=== PATIENT | female | born 1955 | race Caucasian/White ===

== ENCOUNTER 2019-03-24 05:53 | Inpatient (IN) | payer MEDICAID, OTHER ==
[~2019-03-24] VITALS: Ht 162.6 cm; Wt 42.0 kg
--- NOTE | 2019-03-24 05:58 | NUR ---
assessment made. ERP at bedside. patient with a GCS 5 at this time. eyes deviated to right. decorticate posturing noted.
[2019-03-24] MEDS ORDERED: SODIUM CHLORIDE FLUSH 10ML SYR IVF ONE (06:00)
--- NOTE | 2019-03-24 06:00 | NUR ---
patient to CT scan.
[2019-03-24 06:19] LABS: BASOPHILS % (AUTO) 0 % (0-1); EOSINOPHILS # (AUTO) 0.01 x10^3/uL (0-0.4); EOSINOPHILS % (AUTO) 0 % (1-7); LYMPHOCYTES # (AUTO) 1.04 x10^3/uL (1-3.4); LYMPHOCYTES % (AUTO) 8 % (22-44); MD NO; MEAN CORPUSCULAR HEMOGLOBIN 27.5 pg (27.0-34.8); MEAN CORPUSCULAR HGB CONC 33.1 g/dL (32.4-35.8); MEAN CORPUSCULAR VOLUME 83.1 fL (80-100); MEAN PLATELET VOLUME 6.7 fL (7.4-10.4); MONOCYTES # (AUTO) 0.05 x10^3/uL (0.2-0.8); MONOCYTES % (AUTO) 0 % (2-9); NEUTROPHILS # (AUTO) 11.81 x10^3/uL (1.8-6.8); NEUTROPHILS % (AUTO) 92 % (42-75); PLATELET COUNT 511 x10^3/uL (130-400); RED BLOOD COUNT 4.06 x10^6/uL (3.82-5.3); RED CELL DISTRIBUTION WIDTH 19.4 % (9.6-15.2)
[2019-03-24 06:26] LABS: INTERNATIONAL NORMALIZED RATIO 1.15 (0.93-1.1)
[2019-03-24] MEDS ORDERED: SUCCINYLCHOLINE 20 MG/ML, 10ML IVPush ONE (06:30)
[2019-03-24] MEDS ORDERED: ETOMIDATE 20 MG/10 ML IVPush ONE (06:30)
[2019-03-24] MEDS ORDERED: PROPOFOL 100 ML IV PRN ×2 (06:30→10:41)
[2019-03-24 06:31] LABS: ALANINE AMINOTRANSFERASE 49 U/L (12-78); ALBUMIN 2.2 g/dL (3.4-5.0); CALCIUM 6.3 mg/dL (8.5-10.1); CHLORIDE 117 mmol/L (98-107)
[2019-03-24 06:42] LABS: ALKALINE PHOSPHATASE 208 U/L (45-117); BILIRUBIN,TOTAL 0.8 mg/dL (0.2-1.0); TOTAL PROTEIN 5.5 g/dL (6.4-8.2)
--- NOTE | 2019-03-24 06:45 | NUR ---
Dr. Hunter spoke to silas. patient still full code. intubated with 7.5 , 22 at the [facility].
[2019-03-24] MEDS ORDERED: SODIUM CHLORIDE 0.9% 1,000 ML IV ONE (06:47)
[2019-03-24 06:54] LABS: ANION GAP 10 mmol/L (5-15)
[2019-03-24 06:57] LABS: SALICYLATE LEVEL < 1.7 mg/dL (2.8-20.0)
[2019-03-24] MEDS ORDERED: POTASSIUM CHLORIDE 40 MEQ in SODIUM CHLORIDE 0.9% 500 ML IV ONE ×3 (07:00→18:00)
--- NOTE | 2019-03-24 07:10 | NUR ---
report to MISTY Montoya.
[2019-03-24] MEDS ORDERED: FENTANYL PF 100 MCG/2ML ONE (07:14)
[2019-03-24] MEDS: FENTANYL PF 100 MCG/2ML IVPush PRN ×2 (07:18→09:39)
--- NOTE | 2019-03-24 07:25 | NUR ---
TASK RN: MED SLIP SENT TO PHARMACY PER REQUEST OF PRIMARY RN.
--- NOTE | 2019-03-24 07:32 | NUR ---
OG and webber inserted per order. Pt appears more comfortable p medications. RT attempting to collect ABG per order.
--- NOTE | 2019-03-24 07:46 | NUR ---
Pt to CT via [facility].
[2019-03-24] MEDS ORDERED: D5%-0.45NACL+KCL 40MEQ 1,000 ML IV SCH (08:00)
[2019-03-24] MEDS ORDERED: OMNIPAQUE 350 MG/ML, 100ML BOTTLE ONE (08:02)
--- NOTE | 2019-03-24 08:11 | NUR ---
Pt back from CT, appears restless, biting ETT. Propofol increased.
--- NOTE | 2019-03-24 08:23 | NUR ---
Pt appears more calm, NADN. Discussed IV infusions with Dr. Hunter. All ordered IV infusions to be continued at this time.
[2019-03-24 08:40] LABS: BARBITURATE SCREEN, URINE Negative (Negative); BENZODIAZEPINE SCREEN, URINE Negative (Negative); CANNABINOID SCREEN, URINE Negative (Negative); COCAINE SCREEN, URINE Negative (Negative); METHADONE SCREEN, URINE Negative (Negative)
--- NOTE | 2019-03-24 08:44 | NUR ---
Pt restless, propofol increased, pt positioned for comfort.
[2019-03-24 08:46] LABS: MICROSCOPIC INDICATED
[2019-03-24 08:50] LABS: AMPHETAMINE SCREEN, URINE Negative (Negative); OPIATE SCREEN, URINE Positive (Negative)
[2019-03-24 08:51] LABS: CULTURE INDICATED? NO
[2019-03-24] MEDS ORDERED: SUCCINYLCHOLINE 20 MG/ML, 10ML ONE (09:00)
[2019-03-24] MEDS ORDERED: PROPOFOL 10 MG/ML, 100ML IV ONE (09:00)
[2019-03-24] MEDS ORDERED: ETOMIDATE 20 MG/10 ML ONE (09:00)
[2019-03-24] MEDS ORDERED: FENTANYL PF 100 MCG/2ML IVPush PRN ×2 (09:30→11:00)
--- NOTE | 2019-03-24 09:35 | NUR ---
reported bg to dr saldana, gave 50cc of iv dextose per er md. medicated per protocol.
[2019-03-24] MEDS ORDERED: POTASSIUM CHLORIDE 40 MEQ in DEXTROSE 10% 1,000 ML IV SCH ×3 (10:00→18:30)
[2019-03-24] MEDS ORDERED: DEXTROSE 50%, 50ML VIAL IVPush ONE (10:00)
[2019-03-24 10:09] LABS: CLOSTRIDIUM DIFFICILE ANTIGEN NEGATIVE; CLOSTRIDIUM DIFFICILE TOXIN NEGATIVE (Negative)
[2019-03-24] MEDS ORDERED: NOREPINEPHRINE 4 MG in SODIUM CHLORIDE 0.9% 246 ML IV PRN (10:41)
[2019-03-24] MEDS ORDERED: LACTATED RINGERS 1,000 ML IV SCH (11:00)
[2019-03-24] MEDS: INSULIN LISPRO 100 UNITS/ML, PEN SQ-INSULIN SCH ×3 (11:00→20:14)
[2019-03-24] MEDS: ALBUTEROL/IPRATROPIUM 2.5MG/0.5MG, 3 ML INLINE SCH ×3 (11:00→19:00)
[2019-03-24] MEDS ORDERED: LIDOCAINE-MPF 1%, 2ML ENDO PRN (11:00)
[2019-03-24] MEDS ORDERED: GLUCAGON 1 MG IM PRN ×2 (11:00→12:30)
[2019-03-24] MEDS ORDERED: DEXTROSE 4 GM TAB.CHEW PO PRN ×2 (11:00→12:30)
[2019-03-24] MEDS ORDERED: PHARMACY MAY ADJ FOR RENAL FX MC SCH (11:00)
[2019-03-24] MEDS ORDERED: VANCOMYCIN 50 MG/ML ORAL SUSP PO SCH (11:00)
[2019-03-24] MEDS: PIPERACILLIN/TAZO/PMX 2.25GM 50 ML IV SCH ×2 (11:59→20:13)
[2019-03-24] MEDS ORDERED: METRONIDAZOLE PMX 500MG/100ML 100 ML IV SCH (12:00)
[2019-03-24] MEDS ORDERED: DEXTROSE 50%, 50ML SYRINGE IVPush PRN (12:30)
[2019-03-24] MEDS: DEXTROSE 50%, 50ML SYRINGE IVPush PRN ×4 (12:50→19:28)
[2019-03-24 13:32] LABS: INTERNATIONAL NORMALIZED RATIO 1.25 (0.93-1.1)
[2019-03-24 13:34] LABS: ANION GAP 13 mmol/L (5-15); CALCIUM 6.3 mg/dL (8.5-10.1); CHLORIDE 120 mmol/L (98-107); CREATININE 0.95 mg/dL (0.55-1.02); TRIGLYCERIDES 51 mg/dL (50-200)
[2019-03-24] MEDS: KSCALE TO 4.5 IV SCH ×2 (14:00→22:30)
[2019-03-24] MEDS ORDERED: MAGNESIUM SULFATE 4 GM in SODIUM CHLORIDE 0.9% 100 ML IV ONE (14:00)
[2019-03-24 14:11] LABS: TROPONIN I 0.269 ng/mL (0.000-0.045)
[2019-03-24] MEDS: HEPARIN 5,000 UNITS/ML, 1ML SQ SCH ×2 (15:03→20:14)
[2019-03-24 16:05] LABS: MICROSCOPIC INDICATED
[2019-03-24 16:47] LABS: CULTURE INDICATED? NO
[2019-03-24 16:52] LABS: ANION GAP 11 mmol/L (5-15); CHLORIDE 121 mmol/L (98-107); CREATININE 0.93 mg/dL (0.55-1.02)
[2019-03-24 16:53] LABS: MEAN CORPUSCULAR HEMOGLOBIN 26.9 pg (27.0-34.8); MEAN CORPUSCULAR HGB CONC 32.5 g/dL (32.4-35.8); MEAN CORPUSCULAR VOLUME 82.6 fL (80-100); MEAN PLATELET VOLUME 6.7 fL (7.4-10.4); PLATELET COUNT 491 x10^3/uL (130-400); RED BLOOD COUNT 3.42 x10^6/uL (3.82-5.3); RED CELL DISTRIBUTION WIDTH 18.9 % (9.6-15.2)
[2019-03-24 16:55] LABS: TROPONIN I 0.246 ng/mL (0.000-0.045)
[2019-03-24] MEDS ORDERED: POTASSIUM CHLORIDE 40 MEQ in SODIUM CHLORIDE 0.9% 100 ML IV ONE ×2 (18:30→23:30)
[2019-03-24 19:03] LABS: CALCIUM 6.1 mg/dL (8.5-10.1); CHLORIDE 124 mmol/L (98-107); CREATININE 0.83 mg/dL (0.55-1.02)
[2019-03-24 19:23] LABS: ANION GAP 12 mmol/L (5-15)
[2019-03-24] MEDS: POTASSIUM CHLORIDE 40 MEQ in DEXTROSE 10% 1,000 ML IV SCH (19:30)
[2019-03-24] MEDS: SODIUM CHLORIDE FLUSH 10ML SYR IVF SCH (20:14)
[2019-03-24] MEDS ORDERED: SODIUM CHLORIDE 0.9% 500 ML IV ONE (21:00)
[2019-03-24] MEDS ORDERED: SODIUM CHLORIDE FLUSH 10ML SYR IVF SCH (21:00)
[2019-03-24 22:03] VITALS: BP 97/55
[2019-03-24 22:53] LABS: MEAN CORPUSCULAR HEMOGLOBIN 27.4 pg (27.0-34.8); MEAN CORPUSCULAR HGB CONC 32.8 g/dL (32.4-35.8); MEAN CORPUSCULAR VOLUME 83.6 fL (80-100); MEAN PLATELET VOLUME 6.7 fL (7.4-10.4); PLATELET COUNT 423 x10^3/uL (130-400); RED CELL DISTRIBUTION WIDTH 18.5 % (9.6-15.2)
[2019-03-24 22:57] LABS: ANION GAP 11 mmol/L (5-15); CHLORIDE 126 mmol/L (98-107); CREATININE 0.78 mg/dL (0.55-1.02)
[2019-03-24 23:05] LABS: CALCIUM 5.5 mg/dL (8.5-10.1)
[2019-03-24] MEDS ORDERED: CALCIUM GLUCONATE 9.2 MEQ in SODIUM CHLORIDE 0.9% 100 ML IV ONE (23:30)
[2019-03-25] MEDS: PIPERACILLIN/TAZO/PMX 2.25GM 50 ML IV SCH (04:20)
[2019-03-25] MEDS: HEPARIN 5,000 UNITS/ML, 1ML SQ SCH ×3 (04:20→20:25)
[2019-03-25 04:27] VITALS: BP 102/58
[2019-03-25] MEDS: KSCALE TO 4.5 IV SCH (04:30)
[2019-03-25 04:44] LABS: BASOPHILS # (AUTO) 0.02 x10^3/uL (0-0.1); BASOPHILS % (AUTO) 0 % (0-1); EOSINOPHILS # (AUTO) 0.01 x10^3/uL (0-0.4); EOSINOPHILS % (AUTO) 0 % (1-7); LYMPHOCYTES # (AUTO) 1.95 x10^3/uL (1-3.4); LYMPHOCYTES % (AUTO) 14 % (22-44); MD NO; MEAN CORPUSCULAR HEMOGLOBIN 27.7 pg (27.0-34.8); MEAN CORPUSCULAR HGB CONC 32.9 g/dL (32.4-35.8); MEAN CORPUSCULAR VOLUME 84.1 fL (80-100); MEAN PLATELET VOLUME 6.9 fL (7.4-10.4); MONOCYTES # (AUTO) 0.53 x10^3/uL (0.2-0.8); MONOCYTES % (AUTO) 4 % (2-9); NEUTROPHILS # (AUTO) 11.28 x10^3/uL (1.8-6.8); NEUTROPHILS % (AUTO) 82 % (42-75); PLATELET COUNT 470 x10^3/uL (130-400); RED BLOOD COUNT 3.22 x10^6/uL (3.82-5.3); RED CELL DISTRIBUTION WIDTH 19.3 % (9.6-15.2)
[2019-03-25 04:58] LABS: ALANINE AMINOTRANSFERASE 46 U/L (12-78); ALBUMIN 1.6 g/dL (3.4-5.0); ANION GAP 12 mmol/L (5-15); CHLORIDE 125 mmol/L (98-107)
[2019-03-25 05:00] LABS: ALKALINE PHOSPHATASE 166 U/L (45-117); BILIRUBIN,TOTAL 0.9 mg/dL (0.2-1.0); TOTAL PROTEIN 4.3 g/dL (6.4-8.2)
[2019-03-25] MEDS ORDERED: POTASSIUM CHLORIDE 30 MEQ in SODIUM CHLORIDE 0.9% 100 ML IV ONE (05:30)
[2019-03-25] MEDS: ALBUTEROL/IPRATROPIUM 2.5MG/0.5MG, 3 ML INLINE SCH ×5 (07:00→22:25)
[2019-03-25] MEDS: SODIUM CHLORIDE FLUSH 10ML SYR IVF SCH ×2 (09:01→20:25)
[2019-03-25] MEDS: PANTOPRAZOLE 40 MG IV IV SCH (09:01)
[2019-03-25] MEDS: POTASSIUM CHLORIDE 20 MEQ PACKET PO SCH ×2 (09:01→20:25)
[2019-03-25] MEDS: POTASSIUM CHLORIDE 40 MEQ in DEXTROSE 10% 1,000 ML IV SCH ×2 (09:38→20:49)
[2019-03-25] MEDS ORDERED: CALCIUM CHLORIDE 13.6 MEQ in SODIUM CHLORIDE 0.9% 100 ML IV ONE (11:00)
[2019-03-25] MEDS ORDERED: CALCIUM GLUCONATE 13.8 MEQ in SODIUM CHLORIDE 0.9% 100 ML IV ONE (11:00)
[2019-03-25] MEDS ORDERED: SODIUM PHOSPHATE 20 MMOL in SODIUM CHLORIDE 0.9% 500 ML IV ONE (12:00)
[2019-03-25] MEDS: INSULIN LISPRO 100 UNITS/ML, PEN SQ-INSULIN SCH ×2 (13:49→18:39)
[2019-03-25] MEDS: ERGOCALCIFEROL 50,000 UNIT CAPSULE PO SCH (13:53)
[2019-03-25] MEDS ORDERED: DEXMEDETOMIDINE 1,000 MCG in SODIUM CHLORIDE 0.9% 240 ML IV PRN (14:30)
[2019-03-25] MEDS ORDERED: NOREPINEPHRINE 4 MG in SODIUM CHLORIDE 0.9% 246 ML IV PRN (14:30)
[2019-03-26] MEDS: INSULIN LISPRO 100 UNITS/ML, PEN SQ-INSULIN SCH ×4 (01:46→20:15)
[2019-03-26] MEDS: ALBUTEROL/IPRATROPIUM 2.5MG/0.5MG, 3 ML INLINE SCH ×6 (02:30→22:16)
[2019-03-26 04:00] VITALS: BP 114/59
[2019-03-26 04:04] LABS: BASOPHILS % (AUTO) 0 % (0-1); EOSINOPHILS % (AUTO) 0 % (1-7); LYMPHOCYTES # (AUTO) 1.55 x10^3/uL (1-3.4); LYMPHOCYTES % (AUTO) 13 % (22-44); MD NO; MEAN CORPUSCULAR HEMOGLOBIN 27.7 pg (27.0-34.8); MEAN CORPUSCULAR HGB CONC 32.4 g/dL (32.4-35.8); MEAN CORPUSCULAR VOLUME 85.5 fL (80-100); MEAN PLATELET VOLUME 6.8 fL (7.4-10.4); MONOCYTES # (AUTO) 0.56 x10^3/uL (0.2-0.8); MONOCYTES % (AUTO) 5 % (2-9); NEUTROPHILS # (AUTO) 10.06 x10^3/uL (1.8-6.8); NEUTROPHILS % (AUTO) 83 % (42-75); PLATELET COUNT 407 x10^3/uL (130-400); RED BLOOD COUNT 2.73 x10^6/uL (3.82-5.3); RED CELL DISTRIBUTION WIDTH 21.5 % (9.6-15.2)
[2019-03-26 04:05] LABS: ANION GAP 6 mmol/L (5-15); CHLORIDE 119 mmol/L (98-107); CREATININE 1.14 mg/dL (0.55-1.02)
[2019-03-26 04:31] LABS: CALCIUM 5.8 mg/dL (8.5-10.1)
[2019-03-26] MEDS: HEPARIN 5,000 UNITS/ML, 1ML SQ SCH ×3 (04:51→19:58)
[2019-03-26 05:05] LABS: ANION GAP 10 mmol/L (5-15); CALCIUM 6.4 mg/dL (8.5-10.1); CHLORIDE 126 mmol/L (98-107); CREATININE 0.87 mg/dL (0.55-1.02)
[2019-03-26] MEDS ORDERED: MAGNESIUM SULFATE PMX 2GM/50ML 50 ML IV ONE (07:00)
[2019-03-26] MEDS ORDERED: CALCIUM GLUCONATE IV ONE (07:00)
[2019-03-26] MEDS ORDERED: POTASSIUM PHOSPHATE 44 MEQ in SODIUM CHLORIDE 0.9% 500 ML IV ONE (07:00)
[2019-03-26] MEDS ORDERED: SODIUM CHLORIDE 0.9% IV ONE (07:00)
[2019-03-26] MEDS: POTASSIUM CHLORIDE 40 MEQ in DEXTROSE 10% 1,000 ML IV SCH ×2 (08:01→20:32)
[2019-03-26] MEDS: PANTOPRAZOLE 40 MG IV IV SCH (08:36)
[2019-03-26] MEDS: SODIUM CHLORIDE FLUSH 10ML SYR IVF SCH ×2 (10:31→20:11)
[2019-03-26] MEDS: CHOLESTYRAMINE LIGHT 4GM PACKET PO SCH ×2 (12:12→20:11)
[2019-03-26] MEDS ORDERED: CATHFLO-ALTEPLASE 2 MG/2 ML CATHFLUSH ONE (23:00)
[2019-03-27] MEDS: INSULIN LISPRO 100 UNITS/ML, PEN SQ-INSULIN SCH ×4 (01:29→20:00)
[2019-03-27] MEDS ORDERED: CATHFLO-ALTEPLASE 2 MG/2 ML CATHFLUSH ONE (01:30)
[2019-03-27] MEDS: ALBUTEROL/IPRATROPIUM 2.5MG/0.5MG, 3 ML INLINE SCH (02:30)
[2019-03-27 04:42] LABS: BASOPHILS # (AUTO) 0.04 x10^3/uL (0-0.1); BASOPHILS % (AUTO) 0 % (0-1); EOSINOPHILS # (AUTO) 0.03 x10^3/uL (0-0.4); EOSINOPHILS % (AUTO) 0 % (1-7); LYMPHOCYTES # (AUTO) 1.59 x10^3/uL (1-3.4); LYMPHOCYTES % (AUTO) 13 % (22-44); MD NO; MEAN CORPUSCULAR HGB CONC 32.8 g/dL (32.4-35.8); MEAN CORPUSCULAR VOLUME 85.2 fL (80-100); MONOCYTES # (AUTO) 0.33 x10^3/uL (0.2-0.8); MONOCYTES % (AUTO) 3 % (2-9); NEUTROPHILS # (AUTO) 10.27 x10^3/uL (1.8-6.8); NEUTROPHILS % (AUTO) 84 % (42-75); PLATELET COUNT 390 x10^3/uL (130-400); RED BLOOD COUNT 2.85 x10^6/uL (3.82-5.3); RED CELL DISTRIBUTION WIDTH 21.5 % (9.6-15.2)
[2019-03-27] MEDS: HEPARIN 5,000 UNITS/ML, 1ML SQ SCH ×3 (04:50→21:48)
[2019-03-27 04:58] LABS: ANION GAP 6 mmol/L (5-15); CALCIUM 6.2 mg/dL (8.5-10.1); CHLORIDE 120 mmol/L (98-107)
[2019-03-27 04:59] LABS: CREATININE 0.78 mg/dL (0.55-1.02); TRIGLYCERIDES 66 mg/dL (50-200)
[2019-03-27 05:44] VITALS: BP 108/65
[2019-03-27] MEDS: POTASSIUM CHLORIDE 40 MEQ in DEXTROSE 10% 1,000 ML IV SCH (06:07)
[2019-03-27] MEDS: CHOLESTYRAMINE LIGHT 4GM PACKET PO SCH ×2 (09:10→21:00)
[2019-03-27] MEDS: PANTOPRAZOLE 40 MG IV IV SCH (09:10)
[2019-03-27] MEDS: SODIUM CHLORIDE FLUSH 10ML SYR IVF SCH ×2 (09:13→21:49)
[2019-03-27] MEDS ORDERED: ALBUTEROL/IPRATROPIUM 2.5MG/0.5MG, 3 ML NPPB PRN (14:30)
[2019-03-28] MEDS: D5%-0.9% NACL 1,000 ML IV SCH ×2 (01:18→13:32)
[2019-03-28] MEDS: INSULIN LISPRO 100 UNITS/ML, PEN SQ-INSULIN SCH ×4 (02:00→20:00)
[2019-03-28 03:59] LABS: O2 FLOW ROOM AIR L/min
[2019-03-28 04:00] VITALS: BP 128/63
[2019-03-28 05:09] LABS: MEAN CORPUSCULAR HEMOGLOBIN 27.9 pg (27.0-34.8); MEAN CORPUSCULAR HGB CONC 32.6 g/dL (32.4-35.8); MEAN CORPUSCULAR VOLUME 85.5 fL (80-100); PLATELET COUNT 475 x10^3/uL (130-400); RED BLOOD COUNT 3.38 x10^6/uL (3.82-5.3); RED CELL DISTRIBUTION WIDTH 21.8 % (9.6-15.2)
[2019-03-28 05:15] LABS: ANION GAP 6 mmol/L (5-15); CALCIUM 6.4 mg/dL (8.5-10.1); CHLORIDE 121 mmol/L (98-107)
[2019-03-28] MEDS: HEPARIN 5,000 UNITS/ML, 1ML SQ SCH (05:20)
[2019-03-28 06:43] LABS: BASOPHILS # (AUTO) 0.05 x10^3/uL (0-0.1); BASOPHILS % (AUTO) 0 % (0-1); EOSINOPHILS # (AUTO) 0.06 x10^3/uL (0-0.4); EOSINOPHILS % (AUTO) 1 % (1-7); LYMPHOCYTES # (AUTO) 1.82 x10^3/uL (1-3.4); LYMPHOCYTES % (AUTO) 14 % (22-44); MD SCAN; MONOCYTES # (AUTO) 0.41 x10^3/uL (0.2-0.8); MONOCYTES % (AUTO) 3 % (2-9); NEUTROPHILS # (AUTO) 10.62 x10^3/uL (1.8-6.8); NEUTROPHILS % (AUTO) 82 % (42-75)
[2019-03-28] MEDS: CHOLESTYRAMINE LIGHT 4GM PACKET PO SCH ×2 (09:00→20:16)
[2019-03-28] MEDS: SODIUM CHLORIDE FLUSH 10ML SYR IVF SCH ×2 (10:16→20:16)
[2019-03-28] MEDS: PANTOPRAZOLE 40 MG IV IV SCH (10:16)
[2019-03-28 13:09] VITALS: BP 98/64
[2019-03-28] MEDS: ENOXAPARIN 40 MG/0.4 ML SQ SCH (13:40)
[2019-03-28 19:59] VITALS: BP 108/64
[2019-03-28] MEDS: DRONABINOL 5 MG CAPSULE PO SCH (20:16)
[2019-03-29 00:30] VITALS: BP 115/71
[2019-03-29] MEDS: INSULIN LISPRO 100 UNITS/ML, PEN SQ-INSULIN SCH ×4 (02:00→20:41)
[2019-03-29] MEDS: D5%-0.9% NACL 1,000 ML IV SCH ×2 (02:37→15:19)
[2019-03-29 04:15] VITALS: BP 112/70
[2019-03-29 06:20] LABS: BASOPHILS # (AUTO) 0.01 x10^3/uL (0-0.1); BASOPHILS % (AUTO) 0 % (0-1); EOSINOPHILS # (AUTO) 0.03 x10^3/uL (0-0.4); EOSINOPHILS % (AUTO) 0 % (1-7); LYMPHOCYTES # (AUTO) 1.62 x10^3/uL (1-3.4); LYMPHOCYTES % (AUTO) 15 % (22-44); MD NO; MEAN CORPUSCULAR HEMOGLOBIN 28.2 pg (27.0-34.8); MEAN CORPUSCULAR HGB CONC 32.5 g/dL (32.4-35.8); MEAN CORPUSCULAR VOLUME 86.9 fL (80-100); MONOCYTES # (AUTO) 0.37 x10^3/uL (0.2-0.8); MONOCYTES % (AUTO) 3 % (2-9); NEUTROPHILS # (AUTO) 8.93 x10^3/uL (1.8-6.8); NEUTROPHILS % (AUTO) 82 % (42-75); PLATELET COUNT 451 x10^3/uL (130-400); RED BLOOD COUNT 3.58 x10^6/uL (3.82-5.3); RED CELL DISTRIBUTION WIDTH 21.7 % (9.6-15.2)
[2019-03-29 06:33] LABS: ALANINE AMINOTRANSFERASE 37 U/L (12-78); ALBUMIN 1.6 g/dL (3.4-5.0); ANION GAP 10 mmol/L (5-15); CALCIUM 6.5 mg/dL (8.5-10.1); CHLORIDE 122 mmol/L (98-107); CREATININE 0.59 mg/dL (0.55-1.02)
[2019-03-29 06:35] LABS: ALKALINE PHOSPHATASE 173 U/L (45-117); BILIRUBIN,TOTAL 0.8 mg/dL (0.2-1.0); TOTAL PROTEIN 4.8 g/dL (6.4-8.2)
[2019-03-29 07:15] VITALS: BP 128/88
[2019-03-29] MEDS: DRONABINOL 5 MG CAPSULE PO SCH ×2 (07:25→20:42)
[2019-03-29] MEDS: PANTOPRAZOLE 40 MG IV IV SCH (07:25)
[2019-03-29] MEDS: CHOLESTYRAMINE LIGHT 4GM PACKET PO SCH ×2 (07:25→20:42)
[2019-03-29] MEDS: SODIUM CHLORIDE FLUSH 10ML SYR IVF SCH ×2 (07:25→20:44)
[2019-03-29] MEDS ORDERED: MAGNESIUM SULFATE PMX 2GM/50ML 50 ML IV ONE (12:30)
[2019-03-29 12:41] VITALS: BP 106/70
[2019-03-29] MEDS: ENOXAPARIN 40 MG/0.4 ML SQ SCH (13:31)
[2019-03-29] MEDS: POTASSIUM CHLORIDE 20 MEQ TAB.ER.PRT PO SCH (16:57)
[2019-03-29 19:24] VITALS: BP 110/70
[2019-03-30 01:00] VITALS: BP 127/72
[2019-03-30] MEDS: INSULIN LISPRO 100 UNITS/ML, PEN SQ-INSULIN SCH ×3 (02:11→13:40)
[2019-03-30] MEDS: D5%-0.9% NACL 1,000 ML IV SCH (04:27)
[2019-03-30 04:52] LABS: BASOPHILS # (AUTO) 0.03 x10^3/uL (0-0.1); BASOPHILS % (AUTO) 0 % (0-1); EOSINOPHILS # (AUTO) 0.05 x10^3/uL (0-0.4); EOSINOPHILS % (AUTO) 1 % (1-7); LYMPHOCYTES # (AUTO) 1.92 x10^3/uL (1-3.4); LYMPHOCYTES % (AUTO) 17 % (22-44); MD NO; MEAN CORPUSCULAR HEMOGLOBIN 27.9 pg (27.0-34.8); MEAN CORPUSCULAR HGB CONC 32.2 g/dL (32.4-35.8); MEAN CORPUSCULAR VOLUME 86.5 fL (80-100); MONOCYTES # (AUTO) 0.51 x10^3/uL (0.2-0.8); MONOCYTES % (AUTO) 5 % (2-9); NEUTROPHILS # (AUTO) 8.54 x10^3/uL (1.8-6.8); NEUTROPHILS % (AUTO) 77 % (42-75); PLATELET COUNT 493 x10^3/uL (130-400); RED BLOOD COUNT 3.49 x10^6/uL (3.82-5.3)
[2019-03-30 05:00] LABS: ANION GAP 10 mmol/L (5-15); CALCIUM 6.2 mg/dL (8.5-10.1); CHLORIDE 120 mmol/L (98-107)
[2019-03-30 05:01] LABS: CREATININE 0.62 mg/dL (0.55-1.02)
[2019-03-30] MEDS ORDERED: POTASSIUM CHLORIDE 40 MEQ in SODIUM CHLORIDE 0.9% 500 ML IV ONE (05:30)
[2019-03-30] MEDS ORDERED: POTASSIUM CHLORIDE 20 MEQ TAB.ER.PRT PO ONE (05:30)
[2019-03-30] MEDS ORDERED: POTASSIUM CHLORIDE 10% 40 MEQ/30 ML UDC PO ONE (05:30)
[2019-03-30 08:26] VITALS: BP 126/76
[2019-03-30] MEDS: CHOLESTYRAMINE LIGHT 4GM PACKET PO SCH ×2 (10:45→21:00)
[2019-03-30] MEDS: DRONABINOL 5 MG CAPSULE PO SCH ×2 (10:45→21:00)
[2019-03-30] MEDS: MAGNESIUM OXIDE 400 MG TABLET PO SCH (10:45)
[2019-03-30] MEDS: SODIUM CHLORIDE FLUSH 10ML SYR IVF SCH ×2 (10:45→23:18)
[2019-03-30] MEDS: POTASSIUM CHLORIDE 20 MEQ TAB.ER.PRT PO SCH ×3 (10:45→17:19)
[2019-03-30] MEDS: ENOXAPARIN 40 MG/0.4 ML SQ SCH (13:47)
[2019-03-30] MEDS ORDERED: D5%-0.45NACL+KCL 40MEQ 1,000 ML IV SCH (14:30)
[2019-03-30] MEDS ORDERED: PVN PER PHARMACY MC PRN (14:30)
[2019-03-30 14:40] VITALS: BP 118/81
[2019-03-30 15:44] LABS: ANION GAP 6 mmol/L (5-15); CALCIUM 6.8 mg/dL (8.5-10.1); CHLORIDE 126 mmol/L (98-107); CREATININE 0.64 mg/dL (0.55-1.02)
[2019-03-30] MEDS ORDERED: D5%-0.45% NACL 1,000 ML IV SCH (16:30)
[2019-03-30] MEDS ORDERED: DEXTROSE 50%, 50ML SYRINGE IVPush PRN (17:00)
[2019-03-30] MEDS ORDERED: FAT EMUL IV SCH ×2 (17:00)
[2019-03-30] MEDS ORDERED: CALCIUM GLUCONATE 9.2 MEQ in SODIUM CHLORIDE 0.9% 100 ML IV ONE (17:00)
[2019-03-30] MEDS ORDERED: [UNRECOGNIZED DRUG - OTHER] IV SCH ×2 (17:00)
[2019-03-30] MEDS ORDERED: DEXTROSE 70% IV SCH ×2 (17:00)
[2019-03-30] MEDS ORDERED: SMOF TPN IV SCH ×2 (17:00)
[2019-03-30] MEDS ORDERED: AMINO ACID 10% IV SCH ×2 (17:00)
[2019-03-30 19:59] VITALS: BP 134/74
[2019-03-30] MEDS: INSULIN REGULAR MEDIUM DOSE Q6H X 48HRS SQ-INSULIN SCH (23:18)
[2019-03-31 01:24] VITALS: BP 126/80
[2019-03-31 04:41] LABS: BASOPHILS # (AUTO) 0.01 x10^3/uL (0-0.1); BASOPHILS % (AUTO) 0 % (0-1); EOSINOPHILS # (AUTO) 0.01 x10^3/uL (0-0.4); EOSINOPHILS % (AUTO) 0 % (1-7); LYMPHOCYTES # (AUTO) 1.71 x10^3/uL (1-3.4); LYMPHOCYTES % (AUTO) 15 % (22-44); MD NO; MEAN CORPUSCULAR HEMOGLOBIN 27.8 pg (27.0-34.8); MEAN CORPUSCULAR HGB CONC 32.3 g/dL (32.4-35.8); MEAN PLATELET VOLUME 7.1 fL (7.4-10.4); MONOCYTES # (AUTO) 0.49 x10^3/uL (0.2-0.8); MONOCYTES % (AUTO) 4 % (2-9); NEUTROPHILS # (AUTO) 9.46 x10^3/uL (1.8-6.8); NEUTROPHILS % (AUTO) 81 % (42-75); PLATELET COUNT 459 x10^3/uL (130-400); RED CELL DISTRIBUTION WIDTH 21.9 % (9.6-15.2)
[2019-03-31] MEDS: INSULIN REGULAR MEDIUM DOSE Q6H X 48HRS SQ-INSULIN SCH ×4 (04:45→22:57)
[2019-03-31 04:58] LABS: CHLORIDE 124 mmol/L (98-107)
[2019-03-31 05:10] LABS: ALANINE AMINOTRANSFERASE 44 U/L (12-78); ALBUMIN 1.6 g/dL (3.4-5.0); ALKALINE PHOSPHATASE 147 U/L (45-117); ANION GAP 7 mmol/L (5-15); BILIRUBIN,TOTAL 0.5 mg/dL (0.2-1.0); CALCIUM 6.8 mg/dL (8.5-10.1); PREALBUMIN 10.1 mg/dL (20.0-40.0); TOTAL PROTEIN 4.4 g/dL (6.4-8.2); TRIGLYCERIDES 69 mg/dL (50-200)
[2019-03-31 08:13] VITALS: BP 123/75
[2019-03-31] MEDS: DRONABINOL 5 MG CAPSULE PO SCH ×2 (08:30→21:00)
[2019-03-31] MEDS: CHOLESTYRAMINE LIGHT 4GM PACKET PO SCH ×2 (08:30→21:00)
[2019-03-31] MEDS: MAGNESIUM OXIDE 400 MG TABLET PO SCH (08:30)
[2019-03-31] MEDS: SODIUM CHLORIDE FLUSH 10ML SYR IVF SCH (12:07)
[2019-03-31 12:10] VITALS: BP 121/72
[2019-03-31] MEDS ORDERED: DEXTROSE 70% IV SCH ×2 (14:30→17:00)
[2019-03-31] MEDS ORDERED: FAT EMUL IV SCH ×2 (14:30→17:00)
[2019-03-31] MEDS ORDERED: [UNRECOGNIZED DRUG - OTHER] IV SCH (14:30)
[2019-03-31] MEDS ORDERED: AMINO ACID 10% IV SCH ×2 (14:30→17:00)
[2019-03-31] MEDS ORDERED: SMOF TPN IV SCH ×2 (14:30→17:00)
[2019-03-31] MEDS: ENOXAPARIN 40 MG/0.4 ML SQ SCH (16:21)
[2019-03-31] MEDS: FILTER, DISP 1.2 MICRON FOR TPN/PVN IV PRN (16:21)
[2019-03-31] MEDS ORDERED: [UNRECOGNIZED DRUG - OTHER] IV SCH (17:00)
[2019-03-31 19:16] VITALS: BP 103/66
[2019-04-01 01:10] VITALS: BP 113/70
[2019-04-01 04:27] LABS: BASOPHILS # (AUTO) 0.04 x10^3/uL (0-0.1); BASOPHILS % (AUTO) 0 % (0-1); EOSINOPHILS # (AUTO) 0.11 x10^3/uL (0-0.4); EOSINOPHILS % (AUTO) 1 % (1-7); LYMPHOCYTES % (AUTO) 20 % (22-44); MD NO; MEAN CORPUSCULAR HGB CONC 32.3 g/dL (32.4-35.8); MEAN CORPUSCULAR VOLUME 86.7 fL (80-100); MEAN PLATELET VOLUME 6.9 fL (7.4-10.4); MONOCYTES # (AUTO) 0.52 x10^3/uL (0.2-0.8); MONOCYTES % (AUTO) 5 % (2-9); NEUTROPHILS # (AUTO) 8.41 x10^3/uL (1.8-6.8); NEUTROPHILS % (AUTO) 75 % (42-75); PLATELET COUNT 403 x10^3/uL (130-400); RED BLOOD COUNT 3.31 x10^6/uL (3.82-5.3); RED CELL DISTRIBUTION WIDTH 21.9 % (9.6-15.2)
[2019-04-01 04:35] LABS: CHLORIDE 111 mmol/L (98-107)
[2019-04-01 04:42] LABS: ALANINE AMINOTRANSFERASE 82 U/L (12-78); ALBUMIN 1.4 g/dL (3.4-5.0); ALKALINE PHOSPHATASE 152 U/L (45-117); ANION GAP 5 mmol/L (5-15); BILIRUBIN,TOTAL 0.6 mg/dL (0.2-1.0); CALCIUM 6.6 mg/dL (8.5-10.1); TOTAL PROTEIN 4.4 g/dL (6.4-8.2)
[2019-04-01] MEDS: SODIUM CHLORIDE FLUSH 10ML SYR IVF SCH ×3 (05:11→22:26)
[2019-04-01] MEDS: INSULIN REGULAR MEDIUM DOSE Q6H X 48HRS SQ-INSULIN SCH ×4 (05:11→22:55)
[2019-04-01 07:07] VITALS: BP 98/64
[2019-04-01] MEDS: THIAMINE 200 MG in SODIUM CHLORIDE 0.9% 50 ML IV SCH (10:10)
[2019-04-01] MEDS: DRONABINOL 5 MG CAPSULE PO SCH ×2 (10:11→21:00)
[2019-04-01] MEDS: MAGNESIUM OXIDE 400 MG TABLET PO SCH (10:11)
[2019-04-01] MEDS: CHOLESTYRAMINE LIGHT 4GM PACKET PO SCH ×2 (10:11→21:00)
[2019-04-01 12:38] VITALS: BP 93/55
[2019-04-01] MEDS: ENOXAPARIN 40 MG/0.4 ML SQ SCH (14:15)
[2019-04-01] MEDS: ERGOCALCIFEROL 50,000 UNIT CAPSULE PO SCH (14:16)
[2019-04-01] MEDS ORDERED: SMOF TPN IV SCH (17:00)
[2019-04-01] MEDS ORDERED: DEXTROSE 70% IV SCH (17:00)
[2019-04-01] MEDS ORDERED: FAT EMUL IV SCH (17:00)
[2019-04-01] MEDS ORDERED: AMINO ACID 10% IV SCH (17:00)
[2019-04-01] MEDS ORDERED: [UNRECOGNIZED DRUG - OTHER] IV SCH (17:00)
[2019-04-01] MEDS: FILTER, DISP 1.2 MICRON FOR TPN/PVN IV PRN (17:03)
[2019-04-01 18:46] VITALS: BP 90/67
[2019-04-02] VITALS (9 sets, daily range): BP systolic 88–124; BP diastolic 54–75
[2019-04-02] MEDS: INSULIN REGULAR MEDIUM DOSE Q6H X 48HRS SQ-INSULIN SCH ×3 (04:44→17:22)
[2019-04-02 04:49] LABS: MEAN CORPUSCULAR HEMOGLOBIN 28.1 pg (27.0-34.8); MEAN CORPUSCULAR HGB CONC 32.1 g/dL (32.4-35.8); MEAN CORPUSCULAR VOLUME 87.6 fL (80-100); MEAN PLATELET VOLUME 7.3 fL (7.4-10.4); PLATELET COUNT 376 x10^3/uL (130-400); RED BLOOD COUNT 3.58 x10^6/uL (3.82-5.3); RED CELL DISTRIBUTION WIDTH 22.1 % (9.6-15.2)
[2019-04-02 04:59] LABS: ANION GAP 2 mmol/L (5-15); CALCIUM 7.2 mg/dL (8.5-10.1); CHLORIDE 107 mmol/L (98-107); CREATININE 0.49 mg/dL (0.55-1.02)
[2019-04-02 05:06] LABS: BASOPHILS # (AUTO) 0.01 x10^3/uL (0-0.1); BASOPHILS % (AUTO) 0 % (0-1); EOSINOPHILS # (AUTO) 0.08 x10^3/uL (0-0.4); EOSINOPHILS % (AUTO) 1 % (1-7); LYMPHOCYTES # (AUTO) 1.89 x10^3/uL (1-3.4); LYMPHOCYTES % (AUTO) 17 % (22-44); MD MORPH REVIEW ONLY; MONOCYTES # (AUTO) 0.25 x10^3/uL (0.2-0.8); MONOCYTES % (AUTO) 2 % (2-9); NEUTROPHILS # (AUTO) 8.95 x10^3/uL (1.8-6.8); NEUTROPHILS % (AUTO) 80 % (42-75)
[2019-04-02 05:08] LABS: ANISOCYTOSIS 1+; POLYCHROMASIA 1+
[2019-04-02 05:09] LABS: <PLATELET ESTIMATE> ADEQUATE; LARGE PLATELETS 1+
[2019-04-02] MEDS: DRONABINOL 5 MG CAPSULE PO SCH ×3 (09:00→20:51)
[2019-04-02] MEDS: SODIUM CHLORIDE FLUSH 10ML SYR IVF SCH ×2 (09:00→20:51)
[2019-04-02] MEDS: THIAMINE 200 MG in SODIUM CHLORIDE 0.9% 50 ML IV SCH (09:42)
[2019-04-02] MEDS: CHOLESTYRAMINE LIGHT 4GM PACKET PO SCH ×2 (09:42→20:51)
[2019-04-02] MEDS: MAGNESIUM OXIDE 400 MG TABLET PO SCH (09:42)
[2019-04-02] MEDS: ENOXAPARIN 40 MG/0.4 ML SQ SCH (14:00)
[2019-04-02] MEDS: PHENYTOIN SODIUM 50 MG/ML, 5ML IVPush SCH ×3 (14:38→20:50)
[2019-04-02] MEDS ORDERED: SMOF TPN IV SCH (17:00)
[2019-04-02] MEDS ORDERED: [UNRECOGNIZED DRUG - OTHER] IV SCH (17:00)
[2019-04-02] MEDS ORDERED: DEXTROSE 70% IV SCH (17:00)
[2019-04-02] MEDS ORDERED: AMINO ACID 10% IV SCH (17:00)
[2019-04-02] MEDS ORDERED: FAT EMUL IV SCH (17:00)
[2019-04-03] MEDS: INSULIN REGULAR MEDIUM DOSE Q6H X 48HRS SQ-INSULIN SCH ×5 (00:08→23:00)
[2019-04-03 00:34] VITALS: BP 109/69
[2019-04-03 05:06] LABS: CHLORIDE 107 mmol/L (98-107)
[2019-04-03 05:38] LABS: ALANINE AMINOTRANSFERASE 127 U/L (12-78); ALBUMIN 1.6 g/dL (3.4-5.0); ALKALINE PHOSPHATASE 212 U/L (45-117); ANION GAP 4 mmol/L (5-15); BILIRUBIN,TOTAL 0.7 mg/dL (0.2-1.0); CALCIUM 7.4 mg/dL (8.5-10.1); CREATININE 0.44 mg/dL (0.55-1.02); TOTAL PROTEIN 5.1 g/dL (6.4-8.2)
[2019-04-03 06:30] VITALS: BP 101/65
[2019-04-03] MEDS: SODIUM CHLORIDE FLUSH 10ML SYR IVF SCH ×2 (09:00→21:41)
[2019-04-03] MEDS: DRONABINOL 5 MG CAPSULE PO SCH ×3 (09:00→21:38)
[2019-04-03] MEDS: MAGNESIUM OXIDE 400 MG TABLET PO SCH (09:00)
[2019-04-03] MEDS: CHOLESTYRAMINE LIGHT 4GM PACKET PO SCH ×2 (09:00→21:00)
[2019-04-03 13:56] VITALS: BP 92/61
[2019-04-03] MEDS: ENOXAPARIN 40 MG/0.4 ML SQ SCH (15:55)
[2019-04-03] MEDS ORDERED: FAT EMUL IV SCH ×3 (17:00→18:00)
[2019-04-03] MEDS ORDERED: [UNRECOGNIZED DRUG - OTHER] IV SCH (17:00)
[2019-04-03] MEDS ORDERED: DEXTROSE 70% IV SCH ×3 (17:00→18:00)
[2019-04-03] MEDS ORDERED: AMINO ACID 10% IV SCH ×3 (17:00→18:00)
[2019-04-03] MEDS ORDERED: SMOF TPN IV SCH ×3 (17:00→18:00)
[2019-04-03] MEDS ORDERED: [UNRECOGNIZED DRUG - OTHER] IV SCH (17:00)
[2019-04-03] MEDS ORDERED: [UNRECOGNIZED DRUG - OTHER] IV SCH (18:00)
[2019-04-03 19:11] VITALS: BP 90/59
[2019-04-03] MEDS: FILTER, DISP 1.2 MICRON FOR TPN/PVN IV PRN (21:42)
[2019-04-04 00:37] VITALS: BP 95/61
[2019-04-04 06:28] LABS: CALCIUM 7.4 mg/dL (8.5-10.1); CHLORIDE 107 mmol/L (98-107)
[2019-04-04 06:31] VITALS: BP 98/58
[2019-04-04 06:36] LABS: ANION GAP 5 mmol/L (5-15); CREATININE 0.59 mg/dL (0.55-1.02); PREALBUMIN 13.8 mg/dL (20.0-40.0)
[2019-04-04] MEDS ORDERED: INSULIN REGULAR LOW DOSE QDAY SQ-INSULIN SCH (07:30)
[2019-04-04] MEDS: SODIUM CHLORIDE FLUSH 10ML SYR IVF SCH ×2 (09:00→21:00)
[2019-04-04] MEDS: MAGNESIUM OXIDE 400 MG TABLET PO SCH (09:00)
[2019-04-04] MEDS: DRONABINOL 5 MG CAPSULE PO SCH ×2 (09:50→21:00)
[2019-04-04 10:07] LABS: ALBUMIN 1.7 g/dL (3.4-5.0)
[2019-04-04 10:09] LABS: BILIRUBIN, DIRECT 0.1 mg/dL (0.1-0.2); BILIRUBIN,INDIRECT 0.3 mg/dL (0.0-2.0); BILIRUBIN,TOTAL 0.4 mg/dL (0.2-1.0); TOTAL PROTEIN 5.2 g/dL (6.4-8.2)
[2019-04-04] MEDS: CHOLESTYRAMINE LIGHT 4GM PACKET PO SCH ×2 (10:50→21:00)
[2019-04-04 12:51] VITALS: BP 95/54
[2019-04-04] MEDS: ENOXAPARIN 40 MG/0.4 ML SQ SCH (16:20)
[2019-04-04] MEDS ORDERED: DEXTROSE 70% IV SCH (17:00)
[2019-04-04] MEDS ORDERED: [UNRECOGNIZED DRUG - OTHER] IV SCH (17:00)
[2019-04-04] MEDS ORDERED: SMOF TPN IV SCH (17:00)
[2019-04-04] MEDS ORDERED: AMINO ACID 10% IV SCH (17:00)
[2019-04-04] MEDS ORDERED: FAT EMUL IV SCH (17:00)
[2019-04-04] MEDS ORDERED: SODIUM CHLORIDE 0.9%, 250ML IVBOLUS ONE (17:30)
[2019-04-04] MEDS ORDERED: ONDANSETRON 2MG/ML, 2ML IVPush PRN (17:30)
[2019-04-04] MEDS: INSULIN LISPRO 100 UNITS/ML, PEN SQ-INSULIN SCH ×2 (17:30→21:00)
[2019-04-04 19:55] VITALS: BP 95/64
[2019-04-05 01:21] VITALS: BP 105/63
[2019-04-05 06:39] VITALS: BP 108/71
[2019-04-05 06:42] LABS: CHLORIDE 113 mmol/L (98-107)
[2019-04-05 06:48] LABS: ANION GAP 6 mmol/L (5-15); CALCIUM 8.2 mg/dL (8.5-10.1); CREATININE 0.67 mg/dL (0.55-1.02)
[2019-04-05] MEDS: INSULIN LISPRO 100 UNITS/ML, PEN SQ-INSULIN SCH ×4 (07:00→20:17)
[2019-04-05] MEDS: DRONABINOL 5 MG CAPSULE PO SCH ×2 (08:58→20:17)
[2019-04-05] MEDS: MAGNESIUM OXIDE 400 MG TABLET PO SCH (08:58)
[2019-04-05] MEDS: THIAMINE 100MG TABLET PO SCH (08:59)
[2019-04-05] MEDS: SODIUM CHLORIDE FLUSH 10ML SYR IVF SCH ×2 (09:00→20:17)
[2019-04-05 11:25] LABS: BILIRUBIN, DIRECT 0.1 mg/dL (0.1-0.2)
[2019-04-05 11:27] LABS: BILIRUBIN,INDIRECT 0.4 mg/dL (0.0-2.0); BILIRUBIN,TOTAL 0.5 mg/dL (0.2-1.0); TOTAL PROTEIN 6.2 g/dL (6.4-8.2)
[2019-04-05 13:30] VITALS: BP 86/60
[2019-04-05] MEDS: CHOLESTYRAMINE LIGHT 4GM PACKET PO SCH ×2 (13:59→20:17)
[2019-04-05] MEDS: ENOXAPARIN 40 MG/0.4 ML SQ SCH (16:36)
[2019-04-05 18:53] VITALS: BP 104/53
[2019-04-06 00:45] VITALS: BP 113/70
[2019-04-06 06:08] LABS: ALBUMIN 1.9 g/dL (3.4-5.0); ANION GAP 5 mmol/L (5-15); CALCIUM 7.8 mg/dL (8.5-10.1); CHLORIDE 115 mmol/L (98-107)
[2019-04-06 06:12] LABS: ALANINE AMINOTRANSFERASE 227 U/L (12-78); ALKALINE PHOSPHATASE 419 U/L (45-117); BILIRUBIN,TOTAL 0.3 mg/dL (0.2-1.0); TOTAL PROTEIN 5.8 g/dL (6.4-8.2)
[2019-04-06] MEDS: INSULIN LISPRO 100 UNITS/ML, PEN SQ-INSULIN SCH ×4 (07:00→20:45)
[2019-04-06 07:15] VITALS: BP 108/73
[2019-04-06] MEDS: THIAMINE 100MG TABLET PO SCH (09:40)
[2019-04-06] MEDS: CHOLESTYRAMINE LIGHT 4GM PACKET PO SCH ×2 (09:40→21:00)
[2019-04-06] MEDS: DRONABINOL 5 MG CAPSULE PO SCH ×2 (09:40→21:00)
[2019-04-06] MEDS: MAGNESIUM OXIDE 400 MG TABLET PO SCH (09:40)
[2019-04-06] MEDS: SODIUM CHLORIDE FLUSH 10ML SYR IVF SCH ×2 (09:41→21:00)
[2019-04-06 14:21] VITALS: BP 100/67
[2019-04-06] MEDS: ENOXAPARIN 40 MG/0.4 ML SQ SCH (15:14)
[2019-04-06] MEDS: DEXTROSE 5% 1,000 ML IV SCH (15:15)
[2019-04-06] MEDS: FLUDROCORTISONE 0.1 MG TABLET PO SCH (15:36)
[2019-04-06 16:05] LABS: BASOPHILS # (AUTO) 0.04 x10^3/uL (0-0.1); BASOPHILS % (AUTO) 1 % (0-1); EOSINOPHILS # (AUTO) 0.05 x10^3/uL (0-0.4); EOSINOPHILS % (AUTO) 1 % (1-7); INTERNATIONAL NORMALIZED RATIO 1.11 (0.93-1.1); LYMPHOCYTES # (AUTO) 1.85 x10^3/uL (1-3.4); LYMPHOCYTES % (AUTO) 19 % (22-44); MD SCAN; MEAN CORPUSCULAR HEMOGLOBIN 27.6 pg (27.0-34.8); MEAN CORPUSCULAR HGB CONC 31.3 g/dL (32.4-35.8); MEAN CORPUSCULAR VOLUME 88.3 fL (80-100); MEAN PLATELET VOLUME 7.6 fL (7.4-10.4); MONOCYTES # (AUTO) 0.39 x10^3/uL (0.2-0.8); MONOCYTES % (AUTO) 4 % (2-9); NEUTROPHILS # (AUTO) 7.61 x10^3/uL (1.8-6.8); NEUTROPHILS % (AUTO) 77 % (42-75); PLATELET COUNT 512 x10^3/uL (130-400); PROTHROMBIN TIME 11.6 Seconds (9.6-11.5); RED BLOOD COUNT 3.62 x10^6/uL (3.82-5.3); RED CELL DISTRIBUTION WIDTH 22.2 % (9.6-15.2)
[2019-04-06 19:17] VITALS: BP 105/68
[2019-04-07] MEDS: DEXTROSE 5% 1,000 ML IV SCH (00:57)
[2019-04-07 01:08] VITALS: BP 111/71
[2019-04-07] MEDS: INSULIN LISPRO 100 UNITS/ML, PEN SQ-INSULIN SCH ×3 (07:00→16:00)
[2019-04-07 07:18] LABS: ALANINE AMINOTRANSFERASE 205 U/L (12-78); ALBUMIN 1.7 g/dL (3.4-5.0); ANION GAP 8 mmol/L (5-15); CALCIUM 7.3 mg/dL (8.5-10.1); CHLORIDE 111 mmol/L (98-107); CREATININE 0.62 mg/dL (0.55-1.02)
[2019-04-07 07:21] LABS: ALKALINE PHOSPHATASE 375 U/L (45-117); BILIRUBIN,TOTAL 0.2 mg/dL (0.2-1.0); TOTAL PROTEIN 5.4 g/dL (6.4-8.2)
[2019-04-07 10:00] VITALS: BP 109/61
[2019-04-07] MEDS: DRONABINOL 5 MG CAPSULE PO SCH (10:12)
[2019-04-07] MEDS: THIAMINE 100MG TABLET PO SCH (10:12)
[2019-04-07] MEDS: CHOLESTYRAMINE LIGHT 4GM PACKET PO SCH (10:12)
[2019-04-07] MEDS: MAGNESIUM OXIDE 400 MG TABLET PO SCH (10:12)
[2019-04-07] MEDS: SODIUM CHLORIDE FLUSH 10ML SYR IVF SCH (10:12)
[2019-04-07] MEDS: FLUDROCORTISONE 0.1 MG TABLET PO SCH (10:12)
[2019-04-07 13:25] VITALS: BP 104/73
[2019-04-07] MEDS: ENOXAPARIN 40 MG/0.4 ML SQ SCH (15:00)
[2019-04-07] MEDS ORDERED: INSU100I11 SQ-INSULIN (17:33)
[2019-04-07] MEDS ORDERED: POTA20TA6 PO (17:33)
[2019-04-07] MEDS ORDERED: DRON5CAP15 PO (17:33)
[2019-04-07] MEDS ORDERED: FLUD0.1T PO (17:33)
[2019-04-07] MEDS ORDERED: ERGO500017 PO (17:33)
[2019-04-07] MEDS ORDERED: MAGN400T50 PO (17:33)
[2019-04-07] MEDS ORDERED: THIA100T67 PO (17:33)
[2019-04-07] MEDS ORDERED: CHOL239. PO (17:33)
[2019-04-07 20:02] VITALS: BP 100/66
== END 2019-04-07 20:30 | DRG 871 ==
LOC: ED 07:18 → SUATTDRO 08:02 → EDIP 08:54 → CCU 09:58 → 3NW 03-28 10:10 → 4EST 04-02 13:29
PROVIDERS: ADMIT Internal Medicine; ATTEND Internal Medicine
PROC: 02HV33Z Insertion of Infusion Device into Superior Vena Cava, Percutaneous Approach (ICD-10-PCS; principal; 2019-03-24)
PROC: B548ZZA Ultrasonography of Superior Vena Cava, Guidance (ICD-10-PCS; 2019-03-24)
PROC: 0BH17EZ Insertion of Endotracheal Airway into Trachea, Via Natural or Artificial Opening (ICD-10-PCS; 2019-03-24)
PROC: 0T9B70Z Drainage of Bladder with Drainage Device, Via Natural or Artificial Opening (ICD-10-PCS; 2019-03-24)
PROC: 5A1945Z Respiratory Ventilation, 24-96 Consecutive Hours (ICD-10-PCS; 2019-03-24)
DX: A41.9 Sepsis, unspecified organism (principal); E11.641 Type 2 diabetes mellitus with hypoglycemia with coma; G93.41 Metabolic encephalopathy; J96.01 Acute respiratory failure with hypoxia; R65.21 Severe sepsis with septic shock; E27.1 Primary adrenocortical insufficiency; E46 Unspecified protein-calorie malnutrition; E87.0 Hyperosmolality and hypernatremia; E87.2 Acidosis; G93.1 Anoxic brain damage, not elsewhere classified; J98.11 Atelectasis; K56.600 Partial intestinal obstruction, unspecified as to cause; N25.81 Secondary hyperparathyroidism of renal origin; R64 Cachexia; Z99.11 Dependence on respirator [ventilator] status; Z68.1 Body mass index [BMI] 19.9 or less, adult; Z66 Do not resuscitate; D63.8 Anemia in other chronic diseases classified elsewhere; E83.39 Other disorders of phosphorus metabolism; E83.42 Hypomagnesemia; E83.51 Hypocalcemia; E83.52 Hypercalcemia; E83.59 Other disorders of calcium metabolism; E87.6 Hypokalemia; E87.8 Other disorders of electrolyte and fluid balance, not elsewhere classified; F32.9 Major depressive disorder, single episode, unspecified; F41.9 Anxiety disorder, unspecified; K76.0 Fatty (change of) liver, not elsewhere classified; N29 Other disorders of kidney and ureter in diseases classified elsewhere; Z93.3 Colostomy status; Z79.899 Other long term (current) drug therapy
CPT/HCPCS: 31500; 36415; 36600; 84145; 99291; J3475; J7042; J7620; 36573; 70450; 70551; 71045; 74177; 76700; 80048; 80053; 80074; 80076; 80185; 80307; 81001; 82140; 82306; 82330; 82533; 82550; 82607; 82803; 82962; 83605; 83735; 83970; 84100; 84134; 84443; 84478; 84484; 85025; 85027; 85610; 85730; 87040; 87070; 87081; 87205; 87324; 93005; 93308; 93321; 93325; 94002; 94003; 94150; 94640; 95816; 95819; 96365; 96366; 96375; G0378; J0610; J1165; J1644; J1650; J1815; J2543; J2704; J2997; J3010; J3411; J3480; J7070; Q0167; Q9967; C1751; C9113; J0330; J1720; J3420; J7030; J7040; J7050